=== PATIENT | female | born 1955 ===

== ENCOUNTER 2017-05-21 07:32 | Day surgery (SDC) | payer MEDICARE ==
[2017-05-21 08:56] VITALS: BP 159/95; PULSE 79; RESP 14; TEMP 98; O2SAT 99
[2017-05-21 09:40] VITALS: BP 135/78; PULSE 67; RESP 18; TEMP 97.3; O2SAT 97
--- NOTE | 2017-05-21 09:50 | RADRPT ---
EXAM DATE/TIME: 05/21/2017 09:29 [facility] COMPARISON: No previous studies available for comparison. INDICATIONS : Post left thoracentesis. MEDICAL HISTORY : None. SURGICAL HISTORY : None. ENCOUNTER: Initial ACUITY: 1 day PAIN SCORE: 0/10 LOCATION: Bilateral chest FINDINGS: There is a right subclavian catheter in place. Small residual left pleural effusion following left-si ded thoracentesis with apparent left-sided pleural thickening. No significant pneumothorax. Mild asso ciated airspace disease in the left lower lung zone likely reflecting compressive atelectasis. Cardio me cell contours are within normal limits. Bony thorax is intact. CONCLUSION: 1. No significant pneumothorax status post left-sided thoracentesis. 2. Residual small left pleural effusion with associated left lower lung zone airspace disease, presum ably compressive atelectasis. 3. Findings suggesting diffuse pleural thickening versus loculations on the left side. Chuy Lujan MD on May 21, 2017 at 9:43 Board Certified Radiologist. This report was verified electronically.
[2017-05-21 09:55] VITALS: BP 131/81; PULSE 68; RESP 18; O2SAT 97
[2017-05-21] MEDS ORDERED: LIDOCAINE HCL 1% 20 ML VIAL ONE (11:45)
--- NOTE | 2017-05-21 16:41 | RADRPT ---
EXAM DATE/TIME: 05/21/2017 08:51 [facility] COMPARISON: No previous studies available for comparison. INDICATIONS : Left pleural effusion. MEDICAL HISTORY : Metastatic breast cancer. SURGICAL HISTORY : Thoracentesis. ENCOUNTER: Initial ACUITY: 1 day PAIN SCORE: 0/10 LOCATION: Left chest FLUID: Total volume of 1,300 cc of clear, yellow fluid was removed. Fluid was discarded. Thoracentesis was therapeutic only. TECHNIQUE: 1. Ultrasound guidance for thoracentesis. 2. Thoracentesis. The risks, benefits, and alternatives to ultrasound guided thoracentesis were explained to the patien t in lay simple terms, including the risk of bleeding and infection. Written and verbal informed con sent was obtained. Appropriate area for thoracentesis was marked under ultrasound guidance with the patient in the uprig ht position. Overlying skin was prepped and draped in the usual sterile fashion and with local anest hetic, a dermatotomy was made with an 11 blade scalpel. A 6 [place] thoracentesis catheter was placed in the pleural space and fluid was removed. Catheter was then removed and a sterile dressing applie d. There were no immediate complications. The patient tolerated the procedure well and the left the ultrasound suite in stable condition. Chest radiograph is to be obtained. CONCLUSION: Uncomplicated ultrasound guided thoracentesis. Marbin Terrazas MD on May 21, 2017 at 16:39 Board Certified Radiologist. This report was verified electronically.
== END 2017-05-21 10:02 | disposition home or self-care (01) ==
LOC: HRAD 07:32 → HRIP 07:35 → HRAD 10:02
PROVIDERS: ATTEND Internal Medicine Hematology
DX: J90 Pleural effusion, not elsewhere classified (principal); C50.912 Malignant neoplasm of unspecified site of left female breast; C79.52 Secondary malignant neoplasm of bone marrow
CPT/HCPCS: 32555; 71045; C1729